=== PATIENT | female | born 1980 | race Caucasian/White ===

== ENCOUNTER 2021-10-06 12:15 | Inpatient (IN) | payer OTHER ==
[~2021-10-06] VITALS: Ht 177.8 cm; Wt 89.8 kg
== END 2021-10-14 10:32 | disposition home or self-care (01) | DRG 743 ==
LOC: ADM 12:15 → OB/GYN 10-11 07:20 → O/R 10-11 07:20 → OB/GYN 10-11 09:30 → CIR.AMB 10-11 12:15 → OB/GYN 10-11 12:15 → EDSTATUS 10-11 12:15 → OB/GYN 10-14 10:32
PROVIDERS: ADMIT Obstetrics & Gynecology; ATTEND Obstetrics & Gynecology
PROC: 0DNW0ZZ Release Peritoneum, Open Approach (ICD-10-PCS; 2021-10-11)
PROC: 0UT10ZZ Resection of Left Ovary, Open Approach (ICD-10-PCS; principal; 2021-10-11 09:30)
DX: D27.1 Benign neoplasm of left ovary (principal); Z20.822 Contact with and (suspected) exposure to COVID-19; K66.0 Peritoneal adhesions (postprocedural) (postinfection)

== ENCOUNTER 2025-05-02 18:29 | Emergency (ER) | payer OTHER ==
[~2025-05-02] VITALS: Ht 180.3 cm; Wt 98.0 kg
[~2025-05-02 18:29] MED LIST: DICLOFENAC SODI75 MG PO
[2025-05-02] MEDS ORDERED: KETOROLAC TROMETHAMINE 30 MG VIAL IV ONE (20:45)
[2025-05-02] MEDS ORDERED: SODIUM CHLORIDE 0.45 % 1,000 ML IV SCH (20:45)
[2025-05-02] MEDS ORDERED: KETOROLAC TROMETHAMINE 30 MG VIAL ONE (20:45)
[2025-05-02] MEDS ORDERED: PROMETHAZINE HCL 50 MG/ML AMPUL IM ONE ×2 (20:45→20:46)
[2025-05-02 21:12] LABS: BASO % 0.7 % (0.1-1.2); EOS # 0.14 (0.04-0.54); EOS % 1.6 % (0.7-7.0); LYMPH # 2.48 (1.18-3.74); LYMPH % 28.5 % (19.3-53.1); MEAN PLATELET VOLUME 9.20 fl (9.4-12.4); MONO # 0.66 (0.24-0.82); MONO % 7.6 % (4.7-12.5); NEUT # 5.33 (1.56-6.13); NEUT % 61.4 % (34.0-71.1); RED CELL DISTRIBUTION WIDTH 12.7 % (11.6-14.4)
[2025-05-02 21:13] LABS: ERYTHROCYTE SEDIMENTATION RATE 35 mm/hr (0-20)
[2025-05-02 22:32] LABS: ALT/SGPT 19.0 U/L (12-78); AST/SGOT 12.0 U/L (15-37); BILIRUBIN TOTAL 0.24 mg/dL (0.3-1.2); BUN CREA RATIO 13.0 (7.0-25.0); CREATININE SERUM 0.7 mg/dL (0.55-1.02); GFR 91.76; GLOBULINA 4.5 G/DL (2.4-3.5); GLUCOSE FASTING 107.0 mg/dL (65-100); OSMOLALITY SERUM 279.0 MOSM/KG (275-295)
[2025-05-02 23:06] LABS: URINE APPEARANCE Cloudy; URINE BILIRRUBIN Negative (NEGATIVE); URINE BLOOD Small; URINE COLOR Yellow; URINE GLUCOSE Negative (NEGATIVE); URINE KETONE Trace (NEGATIVE); URINE LEUKOCYTE Negative; URINE NITRATE Negative; URINE PROTEIN Trace (NEGATIVE); URINE UROBILINOGEN 1.0 E.U./dl
[2025-05-02 23:10] LABS: URINE BACTERIA 7525.0 uL (0.0-1933); URINE EPITHELIAL CELLS 58.6 uL (0.0-38.8); URINE RBC 99.1 uL (0.0-20.8); URINE WBC 25.8 uL (0.0-23.2)
[2025-05-02 23:11] LABS: URINE CAST 0.73 uL (0.0-1.40)
== END 2025-05-03 04:14 | disposition home or self-care (01) ==
LOC: ER 18:29
PROVIDERS: General Practice
DX: M51.16 Intervertebral disc disorders with radiculopathy, lumbar region (principal); R10.9 Unspecified abdominal pain; Z91.041 Radiographic dye allergy status